=== PATIENT | male | born 1955 | race Two or more races ===

== ENCOUNTER 2024-09-14 10:00 | Inpatient (IN) | payer OTHER ==
[~2024-09-14] VITALS: Ht 182.9 cm; Wt 78.9 kg
[2024-09-14] MEDS ORDERED: COZAAR100 MG PO (11:56)
[2024-09-14] MEDS ORDERED: NEURONTIN300 MG (11:57)
[2024-09-14] MEDS ORDERED: ECOTRIN325 M1 PO (11:57)
[2024-09-14] MEDS ORDERED: CELEBREX100 MG PO (11:57)
[2024-09-14] MEDS ORDERED: LIPITOR40 M1 PO (11:58)
[2024-09-22] MEDS ORDERED: BUPIVACAINE HCL/MPF 0.5% 30ML VIAL ONE (06:38)
[2024-09-22] MEDS ORDERED: LIDOCAINE HCL 1%/EPINEPHRINE 20ML VIAL IJ ONE (06:38)
[2024-09-22] MEDS ORDERED: TRANEXAMIC ACID 100MG/1ML (1000MG) AMPUL IV ONE (06:38)
[2024-09-22] MEDS ORDERED: KETOROLAC TROMETHAMINE 60 MG VIAL IM ONE (06:39)
[2024-09-22] MEDS ORDERED: CEFAZOLIN SODIUM 1,000 MG VIAL ONE ×2 (06:40→11:44)
[2024-09-22] MEDS ORDERED: FENOFIBRIC ACI135 MG (08:30)
[2024-09-22] MEDS ORDERED: ATORVASTATIN CA20 MG (08:30)
[2024-09-22] MEDS ORDERED: CELECOXIB200 MG (08:30)
[2024-09-22] MEDS ORDERED: MORPHINE SULFATE 4 MG/ML VIAL IV ONE ×2 (09:30→11:15)
[2024-09-22] MEDS ORDERED: ONDANSETRON HCL 2 MG/ML VIAL IV PRN (09:45)
[2024-09-22] MEDS ORDERED: OxyCODONE HCL/APAP UD (PERCOCET) PO PRN (09:45)
[2024-09-22] MEDS ORDERED: MORPHINE SULFATE 4 MG/ML CARTRIDGE IV SCH (12:00)
[2024-09-22] MEDS ORDERED: CEFAZOLIN SODIUM 1,000 MG VIAL IV SCH (12:00)
[2024-09-22 13:57] VITALS: BP 117/72; O2SAT 99
[2024-09-22 16:43] VITALS: BP 135/77; O2SAT 96
[2024-09-22] MEDS ORDERED: GABAPENTIN 100 MG CAPSULE PO SCH (21:00)
[2024-09-22] MEDS ORDERED: ORPHENADRINE CITRATE 100 MG TABLET PO SCH (21:00)
[2024-09-23 03:31] VITALS: BP 124/68
[2024-09-23] MEDS ORDERED: APIXABAN 2.5 MG TABLET PO SCH (05:00)
[2024-09-23 08:00] VITALS: BP 95/56
[2024-09-23 08:44] LABS: HEMATOCRIT 34.8 % (39.0-48.0); HEMOGLOBIN 11.8 g/dL (13-16.00); MEAN CELL VOLUME 87.8 fL (80.0-100.00); MEAN CORPUSCULAR HEMOGLOBIN 29.8 pg (27.00-32.0); PLATELET COUNT 167 K/uL (150-450); RED BLOOD COUNT 3.96 M/uL (4.00-6.00); RED CELL DISTRIBUTION WIDTH 12.7 % (11.5-14.5)
[2024-09-23 14:13] LABS: HEMATOCRIT 37.9 % (39.0-48.0); HEMOGLOBIN 12.8 g/dL (13-16.00); MEAN CELL VOLUME 88.5 fL (80.0-100.00); MEAN CORPUSCULAR HEMOGLOBIN 29.9 pg (27.00-32.0); MEAN CORPUSCULAR HGB CONC 33.8 g/dl (32.0-36.0); PLATELET COUNT 172 K/uL (150-450); RED BLOOD COUNT 4.28 M/uL (4.00-6.00); RED CELL DISTRIBUTION WIDTH 12.6 % (11.5-14.5)
[2024-09-23 14:37] LABS: CALCIUM 9.1 mg/dL (8.5-10.1); CREATININE SERUM 0.84 mg/dL (0.70-1.30); GFR 90.87; POTASSIUM 3.86 mEq/L (3.5-5.1)
[2024-09-23 16:00] VITALS: BP 126/69; O2SAT 100
[2024-09-24] VITALS: BP 119/71; O2SAT 96
[2024-09-24 07:01] LABS: HEMATOCRIT 32.3 % (39.0-48.0); HEMOGLOBIN 11.3 g/dL (13-16.00); MEAN CELL VOLUME 86.5 fL (80.0-100.00); MEAN CORPUSCULAR HEMOGLOBIN 30.3 pg (27.00-32.0); PLATELET COUNT 146 K/uL (150-450); RED BLOOD COUNT 3.73 M/uL (4.00-6.00); RED CELL DISTRIBUTION WIDTH 12.9 % (11.5-14.5)
[2024-09-24 08:06] VITALS: BP 117/68; O2SAT 92
[2024-09-24] MEDS ORDERED: OxyCODONE HCL/APAP UD (PERCOCET) PO PRN (11:45)
== END 2024-09-24 13:22 | DRG 470 ==
LOC: O/R 09-22 05:05 → SURG 09-22 10:00 → SURH 09-22 13:06
PROVIDERS: ADMIT Orthopaedic Surgery; ATTEND Orthopaedic Surgery
PROC: 0SRD0JZ Replacement of Left Knee Joint with Synthetic Substitute, Open Approach (ICD-10-PCS; principal; 2024-09-22 10:15)
DX: M17.12 Unilateral primary osteoarthritis, left knee (principal); I10 Essential (primary) hypertension